=== PATIENT | female | born 1950 | race Caucasian/White ===

== ENCOUNTER → 2017-03-31 | Outpatient (CLI) | payer OTHER ==
[~2017-03-31] MED LIST: CYANOCOBALAMIN; LEVO125T6 PO; METO50TA2 PO; OMEP20CA12 PO; SPIR25TA3 PO; T3
--- NOTE | 2017-03-31 14:37 | Diagnostic Imaging Report ---
PROCEDURE: CT abdomen without contrast. TECHNIQUE: Multiple contiguous axial images were obtained through the abdomen without the use of intravenous contrast. INDICATION: Abdominal pain. History of hiatal hernia. COMPARISON: 09/04/2015. FINDINGS: The lung bases are clear. No significant hiatal hernia is demonstrated on current exam. The liver appears normal. The gallbladder and bile ducts are normal. The pancreas and spleen are normal. The adrenal glands are not enlarged. Kidneys show no evidence of obstruction or calculi. The stomach and small bowel are not distended. The colon shows normal stool and gas pattern where visualized. The appendix is normal. The aorta is calcified without aneurysm. No intra-abdominal adenopathy. There are noted a few surgical clips along the upper abdomen along the gastric cardia. IMPRESSION: 1. No evidence of fixed hiatal hernia. 2. No acute abnormalities within the upper abdomen. Dictated by: Dictated on workstation # [id number]
== END ==
LOC: RAD 13:35
PROVIDERS: ATTEND Family Medicine
DX: R10.84 Generalized abdominal pain (principal)
CPT/HCPCS: 74150

== ENCOUNTER → 2021-06-22 | Outpatient (CLI) | payer MEDICARE, OTHER ==
--- NOTE | 2021-06-22 11:59 | Diagnostic Imaging Report ---
PROCEDURE: MRI right joint upper extremity without contrast. TECHNIQUE: Multiplanar, multisequence non contrast-enhanced MRI of the right upper extremity was accomplished. INDICATION: Right shoulder pain times one month. No known injury EXAMINATION: Right shoulder MRI without contrast 06/22/2021 FINDINGS: The long head of biceps tendon lies within the bicipital groove and appears intact. The biceps tendon anchor is intact as well. The subscapularis tendon is intact. There is a bursal sided partial-thickness tear of the anterior supraspinatus tendon with full-thickness extension through the articular surface not excluded but no significant retraction appreciated. The infraspinatus tendon is intact. There is a small amount of fluid in the subdeltoid subacromial bursa which is likely reactive or due to bursitis. The labrum is poorly characterized without contrast but is grossly intact. There is mild fatty infiltration throughout the supraspinatus muscle. Remaining musculature appears preserved. Visualized axilla unremarkable. There is narrowing, spurring and edema at the acromioclavicular joint consistent with osteoarthritic changes. No acute osseous abnormality is appreciated IMPRESSION: 1. Deep partial bursal sided tear of the supraspinatus tendon with a small focus of extension through the articular surface not excluded but no retraction appreciated. Subscapularis and infraspinatus tendons intact. 2. Long head of biceps tendon intact. 3. Clavicular osteoarthritic findings. Dictated by: Dictated on workstation # [id number]
== END ==
LOC: RAD 08:45
PROVIDERS: ATTEND Orthopaedic Surgery
DX: S46.011A Strain of muscle(s) and tendon(s) of the rotator cuff of right shoulder, initial encounter (principal); M19.011 Primary osteoarthritis, right shoulder; X58.XXXA Exposure to other specified factors, initial encounter
CPT/HCPCS: 73221

== ENCOUNTER 2021-07-14 13:04 | Outpatient (RCR) | payer MEDICARE, OTHER ==
[2021-08-24] MEDS ORDERED: LIOT5TAB10 PO (12:23)
[2021-08-24] MEDS ORDERED: CYAN100088 PO (12:32)
[2021-08-24] MEDS ORDERED: LEVO112T55 PO (12:32)
[2021-08-24] MEDS ORDERED: AMOX500T2 PO (12:32)
[2021-08-24] MEDS ORDERED: LOSA100T57 PO (12:32)
[2021-08-24] MEDS ORDERED: CHOL10004 PO (12:32)
[2021-08-24] MEDS ORDERED: SPIR25TA5 PO (12:32)
[2021-08-24] MEDS ORDERED: OMEP20TA7 PO (12:32)
[2021-08-24] MEDS ORDERED: METO50TA15 PO (12:32)
== END 2021-09-09 10:00 | disposition home or self-care (01) ==
PROVIDERS: ATTEND Orthopaedic Surgery
DX: M75.111 Incomplete rotator cuff tear or rupture of right shoulder, not specified as traumatic (principal)

== ENCOUNTER 2021-08-24 06:49 | Outpatient (CLI) | payer MEDICARE, OTHER ==
[~2021-08-24] VITALS: Ht 165.1 cm; Wt 109.1 kg
[2021-08-24] MEDS ORDERED: LIOT5TAB10 PO (12:23)
[2021-08-24] MEDS ORDERED: CHOL10004 PO (12:32)
[2021-08-24] MEDS ORDERED: LOSA100T57 PO (12:32)
[2021-08-24] MEDS ORDERED: CYAN100088 PO (12:32)
[2021-08-24] MEDS ORDERED: LEVO112T55 PO (12:32)
[2021-08-24] MEDS ORDERED: SPIR25TA5 PO (12:32)
[2021-08-24] MEDS ORDERED: AMOX500T2 PO (12:32)
[2021-08-24] MEDS ORDERED: OMEP20TA7 PO (12:32)
[2021-08-24] MEDS ORDERED: METO50TA15 PO (12:32)
== END 2021-08-24 12:37 | disposition home or self-care (01) ==
LOC: PREOP 06:49
PROVIDERS: ATTEND Specialist
DX: Z01.818 Encounter for other preprocedural examination (principal)

== ENCOUNTER 2021-08-27 06:34 | Day surgery (SDC) | payer MEDICARE, OTHER ==
[~2021-08-27] VITALS: Ht 165.1 cm; Wt 109.1 kg
[~2021-08-27 06:34] MED LIST changes: +AMOX500T2 PO; +CHOL10004 PO; +CYAN100088 PO; +LEVO112T55 PO; +LIOT5TAB10 PO; +LOSA100T57 PO; +METO50TA15 PO; +OMEP20TA7 PO; +SPIR25TA5 PO
[2021-08-27] MEDS ORDERED: POVIDONE (BETADINE) OPHTH SOLN 5% 30 ML OP ONE (06:45)
[2021-08-27] MEDS ORDERED: LIDOCAINE PF 1% 2 ML VIAL IR PRN (06:45)
[2021-08-27] MEDS ORDERED: MOXIFLOXACIN OPHTH SOLN 5 MG/ML 0.3 ML SYRINGE OP ONE (06:45)
[2021-08-27] MEDS ORDERED: TIMOLOL MALEATE 0.5% 5 ML (TIMOPTIC) BTL OU PRN (06:45)
[2021-08-27 06:50] VITALS: BP 141/82
[2021-08-27] MEDS: TETRACAINE 0.5% OPHTH SOLN 4 ML BTL (SINGLE DOSE ONLY) OU PRN ×4 (06:55→07:17)
[2021-08-27] MEDS: PHENYLEPHRINE 10% OPHTH (NEO-SYN) 5 ML BTL OU SCH ×3 (07:05→07:17)
[2021-08-27] MEDS: TROPICAMIDE 1% OPH SOLN (MYDRIACYL) 15 ML BTL OP SCH ×3 (07:05→07:18)
--- NOTE | 2021-08-27 07:39 | Ophthalmologist Pre-Op Note ---
Pre-Operative Progress Note H&P Reviewed The H&P was reviewed, patient examined and no changes noted. Date H&P Reviewed: Aug 27, 2021 Time H&P Reviewed: 07:39 Pre-Op Dx Cataract, Right Eye HENOK PERKINS MD Aug 27, 2021 07:39
[2021-08-27] MEDS ORDERED: MIDAZOLAM 2 MG/2 ML (VERSED) VIAL ONE (07:45)
[2021-08-27] MEDS ORDERED: acetaZOLAMIDE ER 500 MG CAP (DIAMOX SEQUELS) PO ONE (08:00)
--- NOTE | 2021-08-27 08:03 | Ophthalmology Operative Report ---
Cataract removal/placement IOL PREOPERATIVE DIAGNOSIS: Cataract Right Eye POSTOPERATIVE DIAGNOSIS: Cataract Right Eye PROCEDURE: Cataract removal and placement of posterior chamber implant, right eye SURGEON: Mark Perkins ANESTHESIA: Topical with sedation COMPLICATIONS: None ESTIMATED BLOOD LOSS: Minimal DESCRIPTION OF PROCEDURE: After proper informed consent was obtained, the patient, a 71 female, was taken to the Operating Room and the right eye was anesthetized with tetracaine. The right eye was then prepped and draped in the usual manner. A wire lid speculum was placed. A paracentesis was made at the left hand position. Preservative free lidocaine was injected into the anterior chamber followed by viscoelastic. A clear corneal incision was made in the temporal position. A capsulorrhexis was preformed and the central nuclear and cortical material were removed. The posterior capsule was polished and Bryant 22.5 AU00T0 IOL was placed into the capsular bag. The residual viscoelastic was aspirated and balanced saline solution was injected into the anterior chamber. Moxifloxacin was injected into the anterior chamber. The wound was checked and found to be water tight. The patient tolerated the procedure well without complications. MARK PERKINS MD Aug 27, 2021 08:03
[2021-08-27 08:23] VITALS: BP 121/67
--- NOTE | 2021-08-27 12:30 | Anesthesia-General Post-Op ---
MAC Patient Condition Mental Status/LOC: Same as Preop Cardiovascular: Satisfactory Nausea/Vomiting: Absent Respiratory: Satisfactory Pain: Controlled Complications: Absent Post Op Complications Complications None Follow Up Care/Instructions Patient Instructions None needed. Anesthesiology Discharge Order Discharge Order Patient is doing well, no complaints, stable vital signs, no apparent adverse anesthesia problems. No complications reported per nursing. YOLANDA WILKERSON CRNA Aug 27, 2021 12:30
== END 2021-08-27 08:24 | disposition home or self-care (01) ==
LOC: SDC 06:34
PROVIDERS: ATTEND Specialist
DX: H25.11 Age-related nuclear cataract, right eye (principal); I10 Essential (primary) hypertension; H91.90 Unspecified hearing loss, unspecified ear; E03.9 Hypothyroidism, unspecified
CPT/HCPCS: 66984; V2632

== ENCOUNTER 2021-09-10 06:30 | Day surgery (SDC) | payer MEDICARE, OTHER ==
[~2021-09-10] VITALS: Ht 165.1 cm; Wt 109.1 kg
[2021-09-10] MEDS: TETRACAINE 0.5% OPHTH SOLN 4 ML BTL (SINGLE DOSE ONLY) OU PRN ×4 (06:44→07:04)
[2021-09-10 06:45] VITALS: BP 139/69
[2021-09-10] MEDS ORDERED: LIDOCAINE PF 1% 2 ML VIAL IR PRN (06:45)
[2021-09-10] MEDS ORDERED: MOXIFLOXACIN OPHTH SOLN 5 MG/ML 0.3 ML SYRINGE OP ONE (06:45)
[2021-09-10] MEDS ORDERED: POVIDONE (BETADINE) OPHTH SOLN 5% 30 ML OP ONE (06:45)
[2021-09-10] MEDS ORDERED: TIMOLOL MALEATE 0.5% 5 ML (TIMOPTIC) BTL OU PRN (06:45)
[2021-09-10] MEDS: PHENYLEPHRINE 10% OPHTH (NEO-SYN) 5 ML BTL OU SCH ×3 (06:51→07:04)
[2021-09-10] MEDS: TROPICAMIDE 1% OPH SOLN (MYDRIACYL) 15 ML BTL OP SCH ×3 (06:51→07:04)
[2021-09-10] MEDS ORDERED: MIDAZOLAM 2 MG/2 ML (VERSED) VIAL ONE (07:34)
--- NOTE | 2021-09-10 07:50 | Ophthalmologist Pre-Op Note ---
Pre-Operative Progress Note H&P Reviewed The H&P was reviewed, patient examined and no changes noted. Date H&P Reviewed: Sep 10, 2021 Time H&P Reviewed: 07:49 Pre-Op Dx Cataract, Left Eye HENOK PERKINS MD Sep 10, 2021 07:50
[2021-09-10] MEDS ORDERED: acetaZOLAMIDE ER 500 MG CAP (DIAMOX SEQUELS) PO ONE (08:00)
--- NOTE | 2021-09-10 08:21 | Ophthalmology Operative Report ---
Cataract removal/placement IOL PREOPERATIVE DIAGNOSIS: Cataract Left Eye POSTOPERATIVE DIAGNOSIS: Cataract Left Eye PROCEDURE: Cataract removal and placement of posterior chamber implant, left eye SURGEON: Mark Perkins ANESTHESIA: Topical with sedation COMPLICATIONS: None ESTIMATED BLOOD LOSS: Minimal DESCRIPTION OF PROCEDURE: After proper informed consent was obtained, the patient, a 71 female, was taken to the Operating Room and the left eye was anesthetized with tetracaine. The left eye was then prepped and draped in the usual manner. A wire lid speculum was placed. A paracentesis was made at the left hand position. Preservative free lidocaine was injected into the anterior chamber followed by viscoelastic. A clear corneal incision was made in the temporal position. A capsulorrhexis was preformed and the central nuclear and cortical material were removed. The posterior capsule was polished and an Bryant 25.0 AU00T0 was placed into the capsular bag. The residual viscoelastic was aspirated and balanced saline solution was injected into the anterior chamber. Moxifloxacin was injected into the anterior chamber. The wound was checked and found to be water tight. The patient tolerated the procedure well without complications. MARK PERKINS MD Sep 10, 2021 08:21
[2021-09-10 08:28] VITALS: BP 122/61
--- NOTE | 2021-09-10 13:04 | Anesthesia-General Post-Op ---
MAC Patient Condition Mental Status/LOC: Same as Preop Cardiovascular: Satisfactory Nausea/Vomiting: Absent Respiratory: Satisfactory Pain: Controlled Complications: Absent Post Op Complications Complications None Follow Up Care/Instructions Patient Instructions None needed. Anesthesiology Discharge Order Discharge Order Patient is doing well, no complaints, stable vital signs, no apparent adverse anesthesia problems. No complications reported per nursing. TENISHA UP CRNA Sep 10, 2021 13:04
== END 2021-09-10 08:31 ==
LOC: SDC 06:30
PROVIDERS: ATTEND Specialist
DX: H25.12 Age-related nuclear cataract, left eye (principal); I10 Essential (primary) hypertension; E03.9 Hypothyroidism, unspecified; Z87.891 Personal history of nicotine dependence
CPT/HCPCS: 66984; V2632

== ENCOUNTER → 2021-09-10 | Outpatient (CLI) | payer MEDICARE, OTHER | LOC: LABNPT 06:51 | PROVIDERS: ATTEND Orthopaedic Surgery | DX: Z01.812 Encounter for preprocedural laboratory examination (principal); Z20.822 Contact with and (suspected) exposure to COVID-19 | CPT/HCPCS: 87635 ==

== ENCOUNTER → 2021-11-22 | Outpatient (RCR) | payer MEDICARE, OTHER | END | disposition home or self-care (01) | PROVIDERS: ATTEND Nurse Practitioner Family | DX: M25.511 Pain in right shoulder (principal); I10 Essential (primary) hypertension; Z98.890 Other specified postprocedural states; Z96.611 Presence of right artificial shoulder joint ==

== ENCOUNTER 2021-12-22 14:55 | Outpatient (RCR) | payer MEDICARE, OTHER | END 2021-12-23 | disposition home or self-care (01) | PROVIDERS: ATTEND Nurse Practitioner Family | DX: M25.511 Pain in right shoulder (principal); I10 Essential (primary) hypertension; Z98.890 Other specified postprocedural states; Z96.611 Presence of right artificial shoulder joint ==

== ENCOUNTER 2022-01-14 14:29 | Outpatient (RCR) | payer MEDICARE, OTHER ==
[~2022-01-14 14:29] MED LIST changes: +OMEP20TA56 PO; -OMEP20TA7 PO
== END 2022-01-22 | disposition home or self-care (01) ==
PROVIDERS: ATTEND Nurse Practitioner Family
DX: M25.511 Pain in right shoulder (principal); I10 Essential (primary) hypertension; Z98.890 Other specified postprocedural states; Z96.611 Presence of right artificial shoulder joint

== ENCOUNTER → 2022-02-22 | Outpatient (RCR) | payer MEDICARE, OTHER | END | disposition home or self-care (01) | PROVIDERS: ATTEND Nurse Practitioner Family | DX: I10 Essential (primary) hypertension (principal); Z98.890 Other specified postprocedural states ==

== ENCOUNTER 2022-03-22 13:23 | Outpatient (RCR) | payer MEDICARE, OTHER | END 2022-03-24 | disposition home or self-care (01) | PROVIDERS: ATTEND Nurse Practitioner Family | DX: M25.511 Pain in right shoulder (principal); I10 Essential (primary) hypertension; Z98.890 Other specified postprocedural states; Z96.611 Presence of right artificial shoulder joint ==

== ENCOUNTER 2022-04-14 13:05 | Outpatient (RCR) | payer MEDICARE, OTHER | END 2022-04-24 | disposition home or self-care (01) | PROVIDERS: ATTEND Nurse Practitioner Family | DX: M25.511 Pain in right shoulder (principal); I10 Essential (primary) hypertension; Z98.890 Other specified postprocedural states; Z96.611 Presence of right artificial shoulder joint ==